=== PATIENT | male | born 1995 | race Two or more races ===

== ENCOUNTER 2023-04-22 08:55 | Emergency (ER) | payer SELFPAY ==
[~2023-04-22] VITALS: Ht 188 cm; Wt 83.3 kg
[2023-04-22 09:21] VITALS: BP 124/68; PULSE 78; RESP 16; TEMP 98.4; O2SAT 98
[2023-04-22] MEDS ORDERED: TOB03OS OP (09:27)
[2023-04-22] MEDS ORDERED: AZIT500T66 PO (09:27)
== END 2023-04-22 09:38 | disposition home or self-care (01) ==
LOC: ER 08:55
DX: J03.90 Acute tonsillitis, unspecified (principal); H10.31 Unspecified acute conjunctivitis, right eye; Z88.0 Allergy status to penicillin; Z79.899 Other long term (current) drug therapy